=== PATIENT | female | born 1940 | race Caucasian/White ===

== ENCOUNTER 2020-01-22 13:31 | Emergency (ER) | payer MEDICARE ==
[~2020-01-22] VITALS: Ht 162.6 cm; Wt 68.2 kg
[2020-01-22 14:18] VITALS: BP 165/80
== END 2020-01-22 16:12 | disposition home or self-care (01) ==
LOC: ER 13:34
DX: S22.089A Unspecified fracture of T11-T12 vertebra, initial encounter for closed fracture (principal); I10 Essential (primary) hypertension; E78.00 Pure hypercholesterolemia, unspecified; I48.91 Unspecified atrial fibrillation; E11.9 Type 2 diabetes mellitus without complications; Z86.73 Personal history of transient ischemic attack (TIA), and cerebral infarction without residual deficits; W19.XXXA Unspecified fall, initial encounter; Y93.89 Activity, other specified; Y92.89 Other specified places as the place of occurrence of the external cause; Y99.8 Other external cause status
CPT/HCPCS: 72131; 93005; 99284

== ENCOUNTER 2020-02-10 20:10 | Emergency (ER) | payer MEDICARE, OTHER ==
[~2020-02-10] VITALS: Ht 160 cm; Wt 63.0 kg
[~2020-02-10 20:10] MED LIST: ATOR20TA66 PO; EMPA10TA PO; FENO145T26 PO; HYDR25TA4 PO; LISI40TA4 PO; MEMA10TA56 PO; METF-438 PO; METO-384 PO; MIRT15TA8 PO; TRAM50TA2 PO
[2020-02-10] MEDS ORDERED: diltiazem 5mg/ml 5ml inj. IV ONE (20:35)
[2020-02-10 21:03] LABS: BASOPHILS # (AUTO) 0.1 X10'3 (0-0.2); BASOPHILS % (AUTO) 0.5 % (0-1); EOSINOPHILS # (AUTO) 0.3 X10'3 (0-0.9); EOSINOPHILS % (AUTO) 2.6 % (0-6); HEMATOCRIT 40.4 % (35.0-45.0); HEMOGLOBIN 13.8 g/dl (12.0-16.0); LYMPHOCYTES # (AUTO) 2.4 X10'3 (1.1-4.8); LYMPHOCYTES % (AUTO) 23.4 % (21-51); MEAN CORPUSCULAR HEMOGLOBIN 30.3 PG (27.0-31.0); MEAN CORPUSCULAR HGB CONC 34.1 g/dL (33.0-36.5); MEAN CORPUSCULAR VOLUME 88.9 FL (78-98); MEAN PLATELET VOLUME 9.4 FL (7.4-10.4); MONOCYTES # (AUTO) 0.8 X10'3 (0-0.9); MONOCYTES % (AUTO) 7.3 % (2-12); NEUTROPHILS # (AUTO) 6.8 X10'3 (1.8-7.7); NEUTROPHILS % (AUTO) 66.2 % (42-75); PLATELET COUNT 263 X10'3 (140-440); RED BLOOD COUNT 4.55 X10'6 (4.20-5.60); RED CELL DISTRIBUTION WIDTH 13.2 % (11.5-14.5); WHITE BLOOD COUNT 10.3 X10'3 (4.5-11.0)
[2020-02-10 21:16] LABS: ALANINE AMINOTRANSFERASE 13 U/L (12-78); ALBUMIN 3.2 G/DL (3.4-5.0); ALBUMIN/GLOBULIN RATIO 0.8 (1.1-1.5); ALKALINE PHOSPHATASE 120 IU/L (46-116); ANION GAP 10 (8-16); ASPARTATE AMINO TRANSFERASE 15 U/L (10-37); BILIRUBIN,TOTAL 0.3 MG/DL (0.1-1.0); BLOOD UREA NITROGEN 37 MG/DL (7-18); BUN/CREATININE RATIO 27.4 (6.6-38.0); CALCIUM 9.1 MG/DL (8.5-10.1); CHLORIDE 100 MMOL/L (99-107); CREATININE 1.35 MG/DL (0.40-0.90); GLUCOSE 230 MG/DL (70-104); PHOSPHORUS 4.1 MG/DL (2.3-4.5); POTASSIUM 4.7 MMOL/L (3.5-5.1); SODIUM 135 MMOL/L (135-145); TOTAL PROTEIN 7.2 G/DL (6.4-8.2); eGFR 38 ML/MIN
[2020-02-10 22:16] VITALS: BP 140/59
== END 2020-02-10 22:19 | disposition home or self-care (01) ==
LOC: ER 20:10
DX: I48.91 Unspecified atrial fibrillation (principal); E78.00 Pure hypercholesterolemia, unspecified; I10 Essential (primary) hypertension; E11.9 Type 2 diabetes mellitus without complications; Z86.73 Personal history of transient ischemic attack (TIA), and cerebral infarction without residual deficits; Z79.899 Other long term (current) drug therapy
CPT/HCPCS: 36415; 80053; 83735; 84100; 85025; 93005; 96374; 99285; J3490

== ENCOUNTER 2020-05-23 07:03 | Emergency (ER) | payer MEDICARE, MEDICAID ==
[~2020-05-23] VITALS: Ht 165.1 cm; Wt 68.2 kg
[2020-05-23 07:44] LABS: BASOPHILS # (AUTO) 0.1 X10'3 (0-0.2); BASOPHILS % (AUTO) 0.6 % (0-1); EOSINOPHILS # (AUTO) 0.5 X10'3 (0-0.9); EOSINOPHILS % (AUTO) 4.8 % (0-6); HEMATOCRIT 41.5 % (35.0-45.0); HEMOGLOBIN 13.8 g/dl (12.0-16.0); MEAN CORPUSCULAR HEMOGLOBIN 30.1 PG (27.0-31.0); MEAN CORPUSCULAR HGB CONC 33.2 g/dL (33.0-36.5); MEAN CORPUSCULAR VOLUME 90.5 FL (78-98); MONOCYTES # (AUTO) 0.9 X10'3 (0-0.9); MONOCYTES % (AUTO) 8.3 % (2-12); NEUTROPHILS # (AUTO) 5.1 X10'3 (1.8-7.7); NEUTROPHILS % (AUTO) 48.3 % (42-75); PLATELET COUNT 251 X10'3 (140-440); RED BLOOD COUNT 4.58 X10'6 (4.20-5.60); RED CELL DISTRIBUTION WIDTH 13.8 % (11.5-14.5); WHITE BLOOD COUNT 10.5 X10'3 (4.5-11.0)
[2020-05-23 07:59] LABS: ALANINE AMINOTRANSFERASE 14 U/L (12-78); ALBUMIN 3.7 G/DL (3.4-5.0); ALBUMIN/GLOBULIN RATIO 0.9 (1.1-1.5); ALKALINE PHOSPHATASE 68 IU/L (46-116); ANION GAP 7 (8-16); ASPARTATE AMINO TRANSFERASE 10 U/L (10-37); BILIRUBIN,TOTAL 0.3 MG/DL (0.1-1.0); BLOOD UREA NITROGEN 35 MG/DL (7-18); BUN/CREATININE RATIO 29.4 (6.6-38.0); CALCIUM 9.1 MG/DL (8.5-10.1); CHLORIDE 102 MMOL/L (99-107); CREATININE 1.19 MG/DL (0.40-0.90); GLUCOSE 141 MG/DL (70-104); POTASSIUM 4.3 MMOL/L (3.5-5.1); SODIUM 138 MMOL/L (135-145); TOTAL CARBON DIOXIDE 28.8 MMOL/L (24-32); TOTAL PROTEIN 7.7 G/DL (6.4-8.2); eGFR 44 ML/MIN
[2020-05-23 08:00] LABS: CLARITY,URINE CLEAR (Clear); COLOR,URINE STRAW (Yellow); GLUCOSE, URINE >=1000 mg/dl (Neg); KETONES,URINE NEGATIVE (Neg); LEUKOCYTE ESTERASE ,URINE NEGATIVE (Neg); NITRITES, URINE NEGATIVE (Neg); OCCULT BLOOD,URINE NEGATIVE (Neg); PH,URINE 5.5 (4.8-8.0); PROTEIN,URINE NEGATIVE (Neg); UA COLLECTION TYPE STRAIGHT CATH; UROBILINOGEN,URINE 0.2 E.U/dL (0.2-1.0)
[2020-05-23 08:17] LABS: SQUAMOUS EPITHELIAL CELL,UR FEW /LPF (FEW)
[2020-05-23 08:18] LABS: BACTERIA,URINE FEW /HPF (Neg); WBC,URINE 0-4 /HPF (0-4)
[2020-05-23 08:19] LABS: RBC,URINE 0-2 /HPF (0-2); TRANSITIONAL EPI CELLS,URINE FEW /HPF
--- NOTE | 2020-05-23 09:21 | NUR ---
REPORT GIVEN TO RPA AND NOTIFIED OF PATIENT'S RETURN TO FACILITY.
[2020-05-23 09:22] VITALS: BP 158/54
== END 2020-05-23 09:38 | disposition home or self-care (01) ==
LOC: ER 07:04
DX: R42 Dizziness and giddiness (principal); I49.1 Atrial premature depolarization; R06.02 Shortness of breath; R53.83 Other fatigue; R07.89 Other chest pain; R10.9 Unspecified abdominal pain; R05 Cough; I48.91 Unspecified atrial fibrillation; E78.00 Pure hypercholesterolemia, unspecified; I10 Essential (primary) hypertension; E11.9 Type 2 diabetes mellitus without complications; Z86.73 Personal history of transient ischemic attack (TIA), and cerebral infarction without residual deficits; Z79.899 Other long term (current) drug therapy
CPT/HCPCS: 36415; 71045; 80053; 81001; 83880; 84484; 85025; 93005; 99285

== ENCOUNTER 2020-12-24 10:46 | Inpatient (IN) | payer MEDICARE, MEDICAID ==
[~2020-12-24] VITALS: Ht 152.4 cm; Wt 70.0 kg
[2020-12-24] VITALS (22 sets, daily range): BP systolic 99–161; BP diastolic 49–104
[~2020-12-24 10:46] MED LIST changes: +LISI40TA13 PO; -LISI40TA4 PO
[2020-12-24] MEDS ORDERED: iohexol 350MG/ML 100ml bottle IV ONE (11:03)
--- NOTE | 2020-12-24 11:04 | NUR ---
PATIENT TO CT SCAN
--- NOTE | 2020-12-24 11:07 | NUR ---
Called to ED bed 11 for stroke alert, pt in CT. discussed case with Dr. Josue. Pt is getting CTA head and chest, she has a cold pulseless right arm.
--- NOTE | 2020-12-24 11:20 | NUR ---
Return from CT 2nd iv started, SOC contacted, EKG obtained. pt in afib, chronic per hx. I called [facility], where pt lives, spoke to nurse Asha. She reports that at 10am while ambulating she had sudden onset right arm pain, had to sit down. No stroke sympoms at that time.
[2020-12-24 11:23] LABS: BASOPHILS # (AUTO) 0.1 X10'3 (0-0.2); BASOPHILS % (AUTO) 0.5 % (0-1); EOSINOPHILS # (AUTO) 0.4 X10'3 (0-0.9); HEMATOCRIT 43.5 % (35.0-45.0); HEMOGLOBIN 14.3 g/dl (12.0-16.0); LYMPHOCYTES # (AUTO) 4.9 X10'3 (1.1-4.8); MEAN CORPUSCULAR HEMOGLOBIN 29.4 PG (27.0-31.0); MEAN CORPUSCULAR HGB CONC 32.8 g/dL (33.0-36.5); MEAN CORPUSCULAR VOLUME 89.6 FL (78-98); MEAN PLATELET VOLUME 8.8 FL (7.4-10.4); MONOCYTES # (AUTO) 0.9 X10'3 (0-0.9); MONOCYTES % (AUTO) 6.9 % (2-12); NEUTROPHILS % (AUTO) 52.6 % (42-75); PLATELET COUNT 317 X10'3 (140-440); RED BLOOD COUNT 4.85 X10'6 (4.20-5.60); RED CELL DISTRIBUTION WIDTH 13.2 % (11.5-14.5); WHITE BLOOD COUNT 13.2 X10'3 (4.5-11.0)
[2020-12-24 11:27] LABS: PARTIAL THROMBOPLASTIN TIME 27 SECONDS (22-32)
--- NOTE | 2020-12-24 11:28 | NUR ---
Dr Calhoun from [facility] [place] examines pt via telemedicine. Pt has a right side facial droop with drooling and expressive aphasia, able to state she is in pain.
[2020-12-24 11:29] LABS: ALANINE AMINOTRANSFERASE 17 U/L (12-78); ALBUMIN 3.7 G/DL (3.4-5.0); ALBUMIN/GLOBULIN RATIO 0.8 (1.1-1.5); ALKALINE PHOSPHATASE 83 IU/L (46-116); ANION GAP 11 (8-16); ASPARTATE AMINO TRANSFERASE 12 U/L (10-37); BILIRUBIN,TOTAL 0.4 MG/DL (0.1-1.0); BLOOD UREA NITROGEN 32 MG/DL (7-18); BUN/CREATININE RATIO 28.6 (6.6-38.0); CALCIUM 9.6 MG/DL (8.5-10.1); CHLORIDE 102 MMOL/L (99-107); CREATININE 1.12 MG/DL (0.40-0.90); GLUCOSE 239 MG/DL (70-104); POTASSIUM 4.2 MMOL/L (3.5-5.1); SODIUM 139 MMOL/L (135-145); TOTAL CARBON DIOXIDE 26.3 MMOL/L (24-32); TOTAL PROTEIN 8.1 G/DL (6.4-8.2); eGFR 47 ML/MIN
[2020-12-24] MEDS ORDERED: diltiazem 5mg/ml 5ml inj. IV ONE ×2 (11:30→13:45)
--- NOTE | 2020-12-24 11:36 | NUR ---
Neuro tele in progress with stroke Rn
[2020-12-24] MEDS ORDERED: normal saline 1000ml 1,000 ML IV ONE (11:40)
--- NOTE | 2020-12-24 11:44 | NUR ---
Dr. Josue orders tPA, which is drawn up and ready 1145 6mg IV tpa bolus given over 1 min 1150 tpa drip initiated at 59.9 mg over 1 hr.
--- NOTE | 2020-12-24 11:45 | NUR ---
Bolus tpa given
--- NOTE | 2020-12-24 11:50 | NUR ---
TPA infusion started
[2020-12-24] MEDS ORDERED: ondansetron/PF 4mg/2ml inj IV ONE ×2 (12:10→13:35)
[2020-12-24] MEDS ORDERED: morphine 4 MG/ML inj SYRINge IV ONE (12:10)
[2020-12-24] MEDS ORDERED: diltiazem-D5W 125mg/125ml 125 ML IV SCH (12:45)
--- NOTE | 2020-12-24 12:50 | NUR ---
Tpa drip completed. NS bag attached to line to infuse remainder of medication in line.
[2020-12-24] MEDS ORDERED: diltiazem-NS 100mg/100ml 100 ML IV SCH ×2 (12:55→15:30)
--- NOTE | 2020-12-24 12:55 | NUR ---
dorothy Cooley, AMARISA [phone] called by stroke Rn for decision making
--- NOTE | 2020-12-24 13:17 | NUR ---
Dr. Kaur in to see pt, plan to OR, he discusses care with DR. Hernández via phone.
[2020-12-24] MEDS ORDERED: labetalol 20mg/4ml (5mg/ml) syringe IV PRN (13:30)
[2020-12-24] MEDS ORDERED: hydrALAZINE 20mg/ml inj. IV PRN (13:30)
[2020-12-24] MEDS ORDERED: ringers solution, lacted 1,000 ML IV SCH (13:30)
[2020-12-24] MEDS ORDERED: morphine 4 MG/ML inj SYRINge IV PRN (13:30)
[2020-12-24] MEDS ORDERED: morphine 2 MG/ML inj. syringe IV PRN ×2 (13:30→14:00)
[2020-12-24] MEDS ORDERED: ondansetron/PF 4mg/2ml inj IV PRN ×2 (13:30→14:00)
[2020-12-24] MEDS ORDERED: fentaNYL/PF 50MCG/1 ML 2ML syringe IV PRN ×2 (13:30)
--- NOTE | 2020-12-24 13:32 | NUR ---
patient cardizem gtt to 10 mg/hr
--- NOTE | 2020-12-24 13:44 | NUR ---
Dr Hernández placing central line
[2020-12-24] MEDS ORDERED: MIDAZolam 1 MG/ML 5ML VIAL ONE (13:59)
[2020-12-24] MEDS ORDERED: potassium Cl 20 mEq SR tablet PO PRN ×2 (14:00)
[2020-12-24] MEDS: K, MAG and/or Phos replacement - Verify level? MC SCH (14:00)
[2020-12-24] MEDS ORDERED: fentaNYL /PF 50mcg/ml 5ml ampule ONE (14:00)
[2020-12-24] MEDS ORDERED: etomidate 2mg/ml inj. ONE ×3 (14:01→15:25)
[2020-12-24] MEDS ORDERED: heparin 10,000 units/1 ML INJ ONE (14:20)
[2020-12-24 14:41] LABS: MAGNESIUM 1.5 MG/DL (1.5-2.4)
[2020-12-24] MEDS ORDERED: phenylephrine 10mg/ml inj. ONE (14:50)
[2020-12-24] MEDS ORDERED: niCARdipine 2.5mg/ml inj IV ONE (14:50)
[2020-12-24] MEDS ORDERED: sevoflurane 250ml liquid IH ONE (14:50)
--- NOTE | 2020-12-24 14:50 | NUR ---
Pt to OR via luis angel, on monitor and cardizem drip infusing, no change in neuro status. Nephew Yasir at bedside, he states speech is very abnormal for pt, she speaks good [place] normally.
[2020-12-24] MEDS ORDERED: ceFAZolin 1000mg inj ONE ×2 (15:25)
[2020-12-24] MEDS ORDERED: ondansetron/PF 4mg/2ml inj ONE (15:31)
[2020-12-24] MEDS ORDERED: dexamethasone sod phosphate 4mg/ml inj. ONE (15:31)
[2020-12-24] MEDS ORDERED: ePHEDrine 50MG/ML INJ. ONE (15:39)
[2020-12-24] MEDS: diltiazem-NS 100mg/100ml 100 ML IV SCH (15:49)
[2020-12-24] MEDS ORDERED: heparin 10,000 units/1 ML INJ IV PRN (15:55)
--- NOTE | 2020-12-24 17:00 | NUR ---
Received pt from OR. Pt in a-fib with rate of 90 bpm, on SpO2 99% on 10 L/min O2 via face mask, some snoring noted, respirations unlabored, +1 radial pulses present bilaterally, pt making moaning vocalizations. Report received by Dr. Fish.
--- NOTE | 2020-12-24 18:25 | NUR ---
Patient in room ICU 2041. I have received report from BORIS Heller and had the opportunity to ask questions and assume patient care.
--- NOTE | 2020-12-24 18:25 | NUR ---
Problems reprioritized. Patient report given, questions answered & plan of care reviewed with BORIS Haider.
--- NOTE | 2020-12-24 18:30 | NUR ---
Patient turned and full skin assessment with direct observation completed by myself and Marie Reynoso RN.
[2020-12-24] MEDS: sodium chloride 0.45% 1,000 ML IV SCH (18:57)
[2020-12-24] MEDS: heparin 25,000 UNIT/250ml bag 250 ML IV SCH (19:15)
[2020-12-24] MEDS ORDERED: HYDR-3965 PO (19:18)
[2020-12-24] MEDS ORDERED: DILT60CA2 PO (19:18)
[2020-12-24] MEDS ORDERED: GENT5DRO4 EACHEYE (19:18)
[2020-12-24] MEDS ORDERED: HYDR12.55 PO (19:18)
[2020-12-24] MEDS ORDERED: DOCU-149 PO (19:18)
[2020-12-24] MEDS ORDERED: PANT20TA18 PO (19:18)
[2020-12-24] MEDS ORDERED: HYDR-3973 PO (19:18)
[2020-12-24] MEDS ORDERED: MESSAGE TO PHARMACY PO ONE (19:40)
[2020-12-24] MEDS ORDERED: insulin regular, human U-100 3ml vial - multi-dose SQ SCH (19:40)
[2020-12-24] MEDS ORDERED: glucagon, human recombinant 1mg kit SUBCUT PRN (19:40)
[2020-12-24] MEDS ORDERED: dextrose 50%-water 50ml dispensing syringe IV PRN ×2 (19:40)
[2020-12-24] MEDS ORDERED: dextrose ORAL solution 15 GM/59 ML bottle PO PRN ×2 (19:40)
[2020-12-24] MEDS ORDERED: heparin, porcine 5000 units/ml vial SQ SCH (20:00)
[2020-12-24] MEDS: pantoprazole 40 MG vial IV SCH (20:23)
[2020-12-24] MEDS: insulin glargine (Lantus) pen - multi-dose SQ SCH (20:33)
[2020-12-24] MEDS: insulin Lispro (HumaLOG) vial - multi-dose SQ SCH (20:34)
[2020-12-24] MEDS: ceFAZolin/D5W- 1GM premix 50 ML IV SCH (20:50)
[2020-12-25] VITALS (27 sets, daily range): BP systolic 99–132; BP diastolic 44–85
[2020-12-25] MEDS: ceFAZolin/D5W- 1GM premix 50 ML IV SCH
[2020-12-25] MEDS: insulin Lispro (HumaLOG) vial - multi-dose SQ SCH ×3 (01:56→14:03)
[2020-12-25 02:11] LABS: BASOPHILS % (AUTO) 0 % (0-1); EOSINOPHILS % (AUTO) 0 % (0-6); HEMATOCRIT 35.3 % (35.0-45.0); HEMOGLOBIN 11.6 g/dl (12.0-16.0); LYMPHOCYTES # (AUTO) 0.6 X10'3 (1.1-4.8); LYMPHOCYTES % (AUTO) 5.4 % (21-51); MEAN CORPUSCULAR HEMOGLOBIN 29.7 PG (27.0-31.0); MEAN CORPUSCULAR HGB CONC 32.9 g/dL (33.0-36.5); MEAN CORPUSCULAR VOLUME 90.1 FL (78-98); MEAN PLATELET VOLUME 8.8 FL (7.4-10.4); MONOCYTES # (AUTO) 0.3 X10'3 (0-0.9); MONOCYTES % (AUTO) 2.5 % (2-12); NEUTROPHILS % (AUTO) 92.1 % (42-75); PLATELET COUNT 259 X10'3 (140-440); RED BLOOD COUNT 3.92 X10'6 (4.20-5.60); RED CELL DISTRIBUTION WIDTH 13.4 % (11.5-14.5)
[2020-12-25] MEDS ORDERED: ceFAZolin/D5W- 1GM premix 50 ML IV ONE (02:20)
[2020-12-25] MEDS: sodium chloride 0.45% 1,000 ML IV SCH ×2 (02:22→09:32)
[2020-12-25 02:25] LABS: ALANINE AMINOTRANSFERASE 7 U/L (12-78); ALBUMIN 2.6 G/DL (3.4-5.0); ALBUMIN/GLOBULIN RATIO 0.7 (1.1-1.5); ALKALINE PHOSPHATASE 64 IU/L (46-116); ANION GAP 10 (8-16); ASPARTATE AMINO TRANSFERASE 15 U/L (10-37); BILIRUBIN,TOTAL 0.3 MG/DL (0.1-1.0); BLOOD UREA NITROGEN 27 MG/DL (7-18); BUN/CREATININE RATIO 23.5 (6.6-38.0); CALCIUM 8.1 MG/DL (8.5-10.1); CHLORIDE 106 MMOL/L (99-107); CREATININE 1.15 MG/DL (0.40-0.90); GLUCOSE 284 MG/DL (70-104); POTASSIUM 4.7 MMOL/L (3.5-5.1); SODIUM 141 MMOL/L (135-145); TOTAL CARBON DIOXIDE 24.9 MMOL/L (24-32); TOTAL PROTEIN 6.1 G/DL (6.4-8.2); eGFR 45 ML/MIN
--- NOTE | 2020-12-25 05:25 | NUR ---
Bedside swallow not down overnight due to patient being drowsy. Mention this during Drs,. rosalino, ordered modified barium swallow and PT/OT.
--- NOTE | 2020-12-25 06:10 | NUR ---
Problems reprioritized. Patient report given, questions answered & plan of care reviewed with BORIS Lozoya.
[2020-12-25] MEDS: K, MAG and/or Phos replacement - Verify level? MC SCH (06:44)
[2020-12-25] MEDS: pantoprazole 40 MG vial IV SCH (07:08)
--- NOTE | 2020-12-25 10:57 | NUR ---
Unable to get hold of speech therapist, called [facility], he said that Malaika is oncall and she will be here between [phone]. Called radiology and undated them.
--- NOTE | 2020-12-25 11:32 | NUR ---
DM Consult: Pt hx DM A1C 7.9 appropriate given geriatric age. Addendum: 12/25/20 at [address] Amended: Links added.
[2020-12-25] MEDS: diltiazem-NS 100mg/100ml 100 ML IV SCH ×2 (11:49→19:00)
[2020-12-25] MEDS ORDERED: diltiazem 5mg/ml 5ml inj. IV ONE (13:00)
--- NOTE | 2020-12-25 15:03 | NUR ---
last two PTTs therapeutic, no change to Heparin drip per protocol.
--- NOTE | 2020-12-25 15:07 | NUR ---
Pt in Afib/Flutter. Restarted gillian at 3ml, Dr. Adams aware. Addendum: 12/25/20 at 1511 by Darell Roman RN Pt did not pass BSS (beside swallow study). Per speech therapist Pt is NPO till next BSS tomorrow
--- NOTE | 2020-12-25 17:08 | NUR ---
Follow up stroke exam NIHSS 5, pt is sleeping, awakes easily, states "I dont feel good" unable to state month or age, some left gaze paresis noted. slight right facial droop and right arm drift. MRI not completed, nurse will follow up with telemed. neuro consult when this is completed this evening.
[2020-12-25] MEDS ORDERED: acetaminophen 1,000mg/100ml IV 100 ML IV PRN (17:45)
[2020-12-25 20:28] LABS: PARTIAL THROMBOPLASTIN TIME 59 SECONDS (22-32)
[2020-12-25] MEDS: insulin glargine (Lantus) pen - multi-dose SQ SCH (21:53)
[2020-12-26] VITALS (21 sets, daily range): BP systolic 97–158; BP diastolic 48–98
[2020-12-26] MEDS: heparin 25,000 UNIT/250ml bag 250 ML IV SCH (01:15)
[2020-12-26 03:38] LABS: BASOPHILS % (AUTO) 0.1 % (0-1); EOSINOPHILS % (AUTO) 0 % (0-6); HEMATOCRIT 33.7 % (35.0-45.0); HEMOGLOBIN 10.9 g/dl (12.0-16.0); LYMPHOCYTES # (AUTO) 2.4 X10'3 (1.1-4.8); MEAN CORPUSCULAR HEMOGLOBIN 29.5 PG (27.0-31.0); MEAN CORPUSCULAR HGB CONC 32.4 g/dL (33.0-36.5); MEAN CORPUSCULAR VOLUME 90.9 FL (78-98); MONOCYTES # (AUTO) 1.5 X10'3 (0-0.9); MONOCYTES % (AUTO) 6.8 % (2-12); NEUTROPHILS % (AUTO) 82.1 % (42-75); PLATELET COUNT 240 X10'3 (140-440); RED BLOOD COUNT 3.71 X10'6 (4.20-5.60); RED CELL DISTRIBUTION WIDTH 13.6 % (11.5-14.5); WHITE BLOOD COUNT 21.9 X10'3 (4.5-11.0)
[2020-12-26 03:42] LABS: PARTIAL THROMBOPLASTIN TIME 52 SECONDS (22-32)
[2020-12-26 03:52] LABS: ALANINE AMINOTRANSFERASE 14 U/L (12-78); ALBUMIN 2.6 G/DL (3.4-5.0); ALBUMIN/GLOBULIN RATIO 0.8 (1.1-1.5); ALKALINE PHOSPHATASE 60 IU/L (46-116); ANION GAP 9 (8-16); ASPARTATE AMINO TRANSFERASE 20 U/L (10-37); BLOOD UREA NITROGEN 25 MG/DL (7-18); BUN/CREATININE RATIO 27.2 (6.6-38.0); CALCIUM 8.1 MG/DL (8.5-10.1); CHLORIDE 107 MMOL/L (99-107); CREATININE 0.92 MG/DL (0.40-0.90); GLUCOSE 134 MG/DL (70-104); POTASSIUM 3.8 MMOL/L (3.5-5.1); SODIUM 143 MMOL/L (135-145); TOTAL PROTEIN 5.9 G/DL (6.4-8.2); eGFR 58 ML/MIN
[2020-12-26 04:08] LABS: BILIRUBIN,TOTAL 0.3 MG/DL (0.1-1.0)
[2020-12-26 07:55] LABS: MAGNESIUM 1.7 MG/DL (1.5-2.4)
[2020-12-26] MEDS: pantoprazole 40 MG vial IV SCH (07:58)
[2020-12-26] MEDS: K, MAG and/or Phos replacement - Verify level? MC SCH (08:49)
--- NOTE | 2020-12-26 08:51 | NUR ---
PTT 48, no change in Heparin drip
[2020-12-26] MEDS ORDERED: acetaminophen 650mg rectal suppository RC PRN (12:35)
[2020-12-26] MEDS ORDERED: magnesium Cl slow-release 64mg tablet PO PRN (12:45)
[2020-12-26] MEDS ORDERED: magnesium 2GM in 50ml NS 50 ML IV PRN (12:45)
[2020-12-26] MEDS ORDERED: magnesium 2GM in 50ml NS 50 ML IV ONE (12:45)
[2020-12-26] MEDS ORDERED: magnesium 4gm in 100ml NS 100 ML IV PRN (12:45)
[2020-12-26] MEDS: sodium chloride 0.45% 1,000 ML IV SCH ×2 (13:10→19:20)
--- NOTE | 2020-12-26 14:09 | NUR ---
Initial: Pt admit for possible CVA and R arm thrombosis s/p R arm thrombectomy this admit. Pending MRI today to determine if true CVA per RN. Pt remains NPO this admit day 2 w/ ALOC AOx1 and hx dementia unable to pass PLUMBING ASSEMBLER INSTALLER BSS currently. LBM 12/24. EN recs below in case alternative nutrition needs; using IBW since pending scaled wt this admit. Will continue to monitor for PO diet advancement/acceptance and additional protein/kcal needs. Rec: 1. advance diet as medically indicated to carb controlled per PLUMBING ASSEMBLER INSTALLER/MD 2. IF remains NPO per PLUMBING ASSEMBLER INSTALLER recs consider alternative EN to meet needs 3. IF TF; Glucerna 1.2 at 40ml/hr goal w/ 200ml Q4 water flushes 4. scaled wt this admit Addendum: 12/26/20 at [address] Amended: Links added.
[2020-12-26] MEDS: diltiazem-NS 100mg/100ml 100 ML IV SCH ×2 (17:25→18:38)
--- NOTE | 2020-12-26 18:33 | NUR ---
Problems reprioritized. Patient report given, questions answered & plan of care reviewed with Night RN.
[2020-12-26] MEDS: insulin glargine (Lantus) pen - multi-dose SQ SCH (21:29)
[2020-12-27] VITALS (23 sets, daily range): BP systolic 124–158; BP diastolic 50–82
[2020-12-27 03:42] LABS: BASOPHILS % (AUTO) 0.3 % (0-1); EOSINOPHILS # (AUTO) 0.1 X10'3 (0-0.9); HEMATOCRIT 31.9 % (35.0-45.0); HEMOGLOBIN 10.6 g/dl (12.0-16.0); LYMPHOCYTES % (AUTO) 26.5 % (21-51); MEAN CORPUSCULAR HEMOGLOBIN 29.6 PG (27.0-31.0); MEAN CORPUSCULAR HGB CONC 33.2 g/dL (33.0-36.5); MEAN CORPUSCULAR VOLUME 88.9 FL (78-98); MEAN PLATELET VOLUME 8.4 FL (7.4-10.4); MONOCYTES # (AUTO) 1.1 X10'3 (0-0.9); MONOCYTES % (AUTO) 9.5 % (2-12); NEUTROPHILS # (AUTO) 7.1 X10'3 (1.8-7.7); NEUTROPHILS % (AUTO) 62.7 % (42-75); PLATELET COUNT 208 X10'3 (140-440); RED BLOOD COUNT 3.58 X10'6 (4.20-5.60); RED CELL DISTRIBUTION WIDTH 13.3 % (11.5-14.5); WHITE BLOOD COUNT 11.3 X10'3 (4.5-11.0)
[2020-12-27 03:49] LABS: ALANINE AMINOTRANSFERASE 16 U/L (12-78); ALBUMIN 2.4 G/DL (3.4-5.0); ALBUMIN/GLOBULIN RATIO 0.7 (1.1-1.5); ALKALINE PHOSPHATASE 62 IU/L (46-116); ANION GAP 5 (8-16); ASPARTATE AMINO TRANSFERASE 17 U/L (10-37); BILIRUBIN,TOTAL 0.3 MG/DL (0.1-1.0); BLOOD UREA NITROGEN 17 MG/DL (7-18); BUN/CREATININE RATIO 21.8 (6.6-38.0); CALCIUM 8.2 MG/DL (8.5-10.1); CHLORIDE 108 MMOL/L (99-107); CREATININE 0.78 MG/DL (0.40-0.90); GLUCOSE 75 MG/DL (70-104); MAGNESIUM 1.8 MG/DL (1.5-2.4); POTASSIUM 3.3 MMOL/L (3.5-5.1); SODIUM 142 MMOL/L (135-145); TOTAL PROTEIN 5.8 G/DL (6.4-8.2); eGFR 71 ML/MIN
[2020-12-27] MEDS ORDERED: potassium Cl 40MEQ/250ML bag 270 ML IV PRN (05:10)
--- NOTE | 2020-12-27 07:59 | NUR ---
Patient in room ICU 2041. I have received report from Nafisa Galaviz and had the opportunity to ask questions and assume patient care. Patient laying in bed with eyes closed, 1L nc sating high 90's, aranda to gravity, ordered drips infusing to L IJ
[2020-12-27] MEDS: K, MAG and/or Phos replacement - Verify level? MC SCH (08:00)
[2020-12-27] MEDS: K and/or MAG REPLACEMENT MC SCH (08:00)
[2020-12-27] MEDS: pantoprazole 40 MG vial IV SCH (08:12)
[2020-12-27] MEDS: sodium chloride 0.45% 1,000 ML IV SCH (08:40)
[2020-12-27] MEDS: diltiazem-NS 100mg/100ml 100 ML IV SCH ×2 (10:53→13:25)
[2020-12-27] MEDS: heparin 25,000 UNIT/250ml bag 250 ML IV SCH (10:55)
--- NOTE | 2020-12-27 11:09 | NUR ---
Rounds note, Dr. Monreal updated on patients, labs, drips and lines. Informed Dr. Monreal that patient failed 2 swallow evals with speech therapy New orders D/C Ij and place PIV [facility] and get nutrition consult change fluids to D5NS with 20meq of potassium to run at 75mls/hr
[2020-12-27] MEDS: potassium Cl 20mEq in D5-NS 1,000 ML IV SCH (11:15)
[2020-12-27] MEDS ORDERED: lisinopril 20mg tablet PO SCH (11:57)
[2020-12-27] MEDS ORDERED: memantine 5mg tablet PO SCH (11:58)
--- NOTE | 2020-12-27 12:46 | NUR ---
TF Consult: Pt failed RAMP SUPERVISOR BSS past 2 days remains NPO day 3 pending [facility] placement for nutrition at this time per salesperson furniture. TF recs below using IBW since pending scaled wt this admit; will monitor for tolerance and adjustment needs as medically indicated. Rec: 1. NGTF via [facility] using Glucerna 1.2 at 40ml/hr goal; to provide 960ml volume, 1125kcals, 778ml free water, and 58g protein. 2. additional water flushes 100ml Q4 3. PALB Q /; daily wts 4. monitor for TF tolerance 5. scaled wt this admit 6. advance diet as medically indicated to carb controlled per RAMP SUPERVISOR/MD recs Addendum: 12/27/20 at [address] Amended: Links added.
[2020-12-27] MEDS ORDERED: POTASSIUM BICARB 20meq eff tab 20 MEQ TABLET.EFF NG PRN ×2 (13:47→13:48)
[2020-12-27] MEDS ORDERED: dextrose ORAL solution 15 GM/59 ML bottle NG PRN ×2 (13:48→13:50)
[2020-12-27] MEDS ORDERED: lisinopril 20mg tablet NG SCH (13:49)
[2020-12-27] MEDS: docusate sodium 100mg/10ml UD cup NG SCH (20:00)
[2020-12-27] MEDS: memantine 5mg tablet NG SCH (20:00)
[2020-12-27] MEDS: gentamicin ophthalmic ointment 1 APPLIC TUBE EACHEYE SCH (20:00)
[2020-12-27] MEDS ORDERED: diltiazem SR 60mg capsule (twice daily) PO SCH (20:00)
[2020-12-27] MEDS: insulin glargine (Lantus) pen - multi-dose SQ SCH (20:30)
[2020-12-27] MEDS: metoprolol succinate 25mg (24-HOUR) SR. Tablet PO SCH (20:44)
[2020-12-27] MEDS ORDERED: mirtazapine 15mg tablet NG SCH (21:00)
[2020-12-27] MEDS ORDERED: atorvastatin 20mg tablet NG SCH (21:00)
[2020-12-28] VITALS (17 sets, daily range): BP systolic 126–192; BP diastolic 55–114
[2020-12-28] MEDS: potassium Cl 20mEq in D5-NS 1,000 ML IV SCH ×2 (02:51→15:26)
[2020-12-28 03:14] LABS: BASOPHILS % (AUTO) 0.3 % (0-1); EOSINOPHILS # (AUTO) 0.3 X10'3 (0-0.9); EOSINOPHILS % (AUTO) 3.1 % (0-6); HEMATOCRIT 31.3 % (35.0-45.0); HEMOGLOBIN 10.4 g/dl (12.0-16.0); LYMPHOCYTES # (AUTO) 2.6 X10'3 (1.1-4.8); LYMPHOCYTES % (AUTO) 26.8 % (21-51); MEAN CORPUSCULAR HEMOGLOBIN 30.1 PG (27.0-31.0); MEAN CORPUSCULAR HGB CONC 33.2 g/dL (33.0-36.5); MEAN CORPUSCULAR VOLUME 90.8 FL (78-98); MEAN PLATELET VOLUME 8.5 FL (7.4-10.4); MONOCYTES # (AUTO) 0.9 X10'3 (0-0.9); MONOCYTES % (AUTO) 9.2 % (2-12); NEUTROPHILS # (AUTO) 5.8 X10'3 (1.8-7.7); NEUTROPHILS % (AUTO) 60.6 % (42-75); PLATELET COUNT 201 X10'3 (140-440); RED BLOOD COUNT 3.44 X10'6 (4.20-5.60); RED CELL DISTRIBUTION WIDTH 13.2 % (11.5-14.5); WHITE BLOOD COUNT 9.5 X10'3 (4.5-11.0)
[2020-12-28 03:52] LABS: ALANINE AMINOTRANSFERASE 17 U/L (12-78); ALBUMIN 2.4 G/DL (3.4-5.0); ALBUMIN/GLOBULIN RATIO 0.7 (1.1-1.5); ALKALINE PHOSPHATASE 60 IU/L (46-116); ANION GAP 6 (8-16); ASPARTATE AMINO TRANSFERASE 18 U/L (10-37); BILIRUBIN,TOTAL 0.4 MG/DL (0.1-1.0); BLOOD UREA NITROGEN 14 MG/DL (7-18); BUN/CREATININE RATIO 17.7 (6.6-38.0); CALCIUM 8.2 MG/DL (8.5-10.1); CHLORIDE 110 MMOL/L (99-107); CREATININE 0.79 MG/DL (0.40-0.90); GLUCOSE 138 MG/DL (70-104); MAGNESIUM 1.7 MG/DL (1.5-2.4); POTASSIUM 3.9 MMOL/L (3.5-5.1); SODIUM 142 MMOL/L (135-145); TOTAL CARBON DIOXIDE 25.8 MMOL/L (24-32); TOTAL PROTEIN 5.8 G/DL (6.4-8.2); eGFR 70 ML/MIN
[2020-12-28] MEDS: pantoprazole 40 MG vial IV SCH (07:29)
[2020-12-28] MEDS: diltiazem-NS 100mg/100ml 100 ML IV SCH (07:29)
[2020-12-28] MEDS ORDERED: pantoprazole 40mg Tablet.DR PO SCH (07:30)
[2020-12-28] MEDS: gentamicin ophthalmic ointment 1 APPLIC TUBE EACHEYE SCH ×2 (07:34→19:56)
[2020-12-28] MEDS: docusate sodium 100mg/10ml UD cup NG SCH (08:00)
[2020-12-28] MEDS: K, MAG and/or Phos replacement - Verify level? MC SCH (08:00)
[2020-12-28] MEDS: K and/or MAG REPLACEMENT MC SCH (08:00)
[2020-12-28] MEDS: memantine 5mg tablet NG SCH (08:00)
[2020-12-28] MEDS ORDERED: HYDROchlorothiazide 12.5mg capsule NG SCH (08:00)
[2020-12-28] MEDS ORDERED: polyethylene glycol 3350 17gm powd pack PO SCH (11:58)
[2020-12-28] MEDS ORDERED: bisacodyl 10mg suppository rectal RC PRN (12:00)
[2020-12-28] MEDS ORDERED: acetaminophen 325mg tablet PO PRN (12:05)
--- NOTE | 2020-12-28 12:53 | NUR ---
F/u 12/28: Pt TF never started; advanced to pureed/nectar thick/carb controlled diet per NITRILES LAB TECHNICIAN recs this AM pending PO documentation first meal. LBM 12/24 to receive duloclax suppository followed by miralax Q2 x3 per incoming freight clerk; pt dose have routine colace ordered however unable to provide given prior NPO status. Will monitor for PO hx and additional protein/kcal needs this admit. Rec: 1. continue carb controlled/pureed/nectar thick liquids per NITRILES LAB TECHNICIAN/MD recs 2. monitor for ONS needs 3. routine bowel care 4. scaled wt this admit Addendum: 12/28/20 at [address] Amended: Links added.
[2020-12-28] MEDS: polyethylene glycol 3350 17gm powd pack PO SCH ×4 (13:02→19:56)
[2020-12-28] MEDS: lisinopril 20mg tablet PO SCH (13:09)
[2020-12-28] MEDS: diltiazem SR 60mg capsule (twice daily) PO SCH ×2 (13:19→19:50)
[2020-12-28] MEDS: heparin 25,000 UNIT/250ml bag 250 ML IV SCH (13:40)
[2020-12-28] MEDS ORDERED: dextrose ORAL solution 15 GM/59 ML bottle PO PRN ×2 (13:41→13:42)
[2020-12-28] MEDS ORDERED: POTASSIUM BICARB 20meq eff tab 20 MEQ TABLET.EFF PO PRN ×2 (13:43→13:47)
--- NOTE | 2020-12-28 16:04 | NUR ---
Report given to Mikaela on neuro. RN states room not ready yet ans will call when room ready.
--- NOTE | 2020-12-28 16:45 | NUR ---
PT taken with all belongings to ortho neuro 4022.
--- NOTE | 2020-12-28 17:11 | NUR ---
Patient transferred from ICU to neuro 4022. received report from Chinyere ESCALANTE.
[2020-12-28] MEDS: mirtazapine 15mg tablet PO SCH (19:49)
[2020-12-28] MEDS: docusate sod 100mg capsule PO SCH (19:49)
[2020-12-28] MEDS: atorvastatin 20mg tablet PO SCH (19:50)
[2020-12-28] MEDS: memantine 5mg tablet PO SCH (19:50)
[2020-12-28] MEDS: insulin glargine (Lantus) pen - multi-dose SQ SCH (21:00)
--- NOTE | 2020-12-28 21:15 | NUR ---
Tele called pts HR in 130s, at this time pt has had an incontinent loose bowel movement and some urine. Bladder scanned pt and she has 900ml in bladder. 2129 Pt on bedpan. Addendum: 12/28/20 at 2150 by Sarah Avila RN Amended: Links added.
[2020-12-28] MEDS: metoprolol succinate 25mg (24-HOUR) SR. Tablet PO SCH (21:26)
[2020-12-29 03:11] LABS: BASOPHILS % (AUTO) 0.4 % (0-1); EOSINOPHILS # (AUTO) 0.4 X10'3 (0-0.9); EOSINOPHILS % (AUTO) 3.9 % (0-6); HEMATOCRIT 35.9 % (35.0-45.0); LYMPHOCYTES # (AUTO) 2.2 X10'3 (1.1-4.8); LYMPHOCYTES % (AUTO) 21.4 % (21-51); MEAN CORPUSCULAR HEMOGLOBIN 29.8 PG (27.0-31.0); MEAN CORPUSCULAR HGB CONC 33.4 g/dL (33.0-36.5); MEAN PLATELET VOLUME 8.6 FL (7.4-10.4); MONOCYTES # (AUTO) 0.9 X10'3 (0-0.9); MONOCYTES % (AUTO) 8.8 % (2-12); NEUTROPHILS # (AUTO) 6.9 X10'3 (1.8-7.7); NEUTROPHILS % (AUTO) 65.5 % (42-75); PLATELET COUNT 244 X10'3 (140-440); RED BLOOD COUNT 4.04 X10'6 (4.20-5.60); RED CELL DISTRIBUTION WIDTH 13.3 % (11.5-14.5); WHITE BLOOD COUNT 10.5 X10'3 (4.5-11.0)
[2020-12-29 03:29] LABS: ALANINE AMINOTRANSFERASE 16 U/L (12-78); ALBUMIN 2.6 G/DL (3.4-5.0); ALBUMIN/GLOBULIN RATIO 0.7 (1.1-1.5); ALKALINE PHOSPHATASE 71 IU/L (46-116); ANION GAP 8 (8-16); ASPARTATE AMINO TRANSFERASE 17 U/L (10-37); BILIRUBIN,TOTAL 0.5 MG/DL (0.1-1.0); BLOOD UREA NITROGEN 9 MG/DL (7-18); CALCIUM 8.9 MG/DL (8.5-10.1); CHLORIDE 106 MMOL/L (99-107); CREATININE 0.82 MG/DL (0.40-0.90); GLUCOSE 174 MG/DL (70-104); MAGNESIUM 1.7 MG/DL (1.5-2.4); POTASSIUM 3.8 MMOL/L (3.5-5.1); SODIUM 140 MMOL/L (135-145); TOTAL CARBON DIOXIDE 26.3 MMOL/L (24-32); TOTAL PROTEIN 6.4 G/DL (6.4-8.2); eGFR 67 ML/MIN
[2020-12-29] MEDS: potassium Cl 20mEq in D5-NS 1,000 ML IV SCH (03:48)
[2020-12-29 06:00] VITALS: BP 158/48
--- NOTE | 2020-12-29 06:36 | NUR ---
Patient in room ORTHO 4022. I have received report from jarocho avalos and had the opportunity to ask questions and assume patient care.
[2020-12-29] MEDS ORDERED: lansoprazole 15mg solutab NG SCH (08:00)
[2020-12-29] MEDS: K and/or MAG REPLACEMENT MC SCH (08:00)
[2020-12-29] MEDS: docusate sod 100mg capsule PO SCH ×2 (08:01→21:02)
[2020-12-29] MEDS: memantine 5mg tablet PO SCH ×2 (08:01→20:59)
[2020-12-29] MEDS: diltiazem SR 60mg capsule (twice daily) PO SCH ×2 (08:02→21:00)
[2020-12-29] MEDS: HYDROchlorothiazide 12.5mg capsule PO SCH (08:02)
[2020-12-29] MEDS: gentamicin ophthalmic ointment 1 APPLIC TUBE EACHEYE SCH ×2 (08:02→21:16)
[2020-12-29] MEDS: lisinopril 20mg tablet PO SCH (08:02)
[2020-12-29] MEDS: pantoprazole 40mg Tablet.DR PO SCH (08:02)
[2020-12-29 10:47] LABS: CHOL/HDL RATIO 1.8 (0.00-4.99); CHOLESTEROL 159 MG/DL (0-200); HDL CHOLESTEROL 87 MG/DL (35-60); LDL CHOLESTEROL 63 MG/DL (50-100); TRIGLYCERIDES 106 MG/DL (20-135)
[2020-12-29 11:00] VITALS: BP 178/57
[2020-12-29 13:30] VITALS: BP 140/69
--- NOTE | 2020-12-29 13:30 | NUR ---
Pt reported increased fatigued and nurse concerned with pt's weakness and increased drowsiness. Marked weakness R>L noted upon assessment. Stroke in to eval and Dr. Covington notified for further eval. VSS BP 140/69 at this time.
[2020-12-29] MEDS: insulin Lispro (HumaLOG) vial - multi-dose SQ SCH (13:53)
[2020-12-29] MEDS ORDERED: neomy sulf/bacitrac zn/polymixin b oint 14.2 gm tube TP PRN (14:20)
[2020-12-29] MEDS: normal saline 1000ml 1,000 ML IV SCH (14:55)
[2020-12-29] MEDS: heparin 25,000 UNIT/250ml bag 250 ML IV SCH ×2 (14:58→21:34)
[2020-12-29 17:00] VITALS: BP 160/53
--- NOTE | 2020-12-29 18:10 | NUR ---
Patient in room ORTHO 4022. I have received report from BORIS Briseno and had the opportunity to ask questions and assume patient care.
--- NOTE | 2020-12-29 18:18 | NUR ---
Problems reprioritized. Patient report given, questions answered & plan of care reviewed with sarah avalos.
[2020-12-29] MEDS ORDERED: iohexol 350MG/ML 100ml bottle IV ONE (19:09)
[2020-12-29] MEDS ORDERED: iohexol 300mg/ml 100ml inj. ONE (19:09)
--- NOTE | 2020-12-29 19:10 | NUR ---
Patient in room ORTHO 4022. I have received report from BORIS Briseno and had the opportunity to ask questions and assume patient care.
[2020-12-29] MEDS: mirtazapine 15mg tablet PO SCH (21:01)
[2020-12-29] MEDS: metoprolol succinate 25mg (24-HOUR) SR. Tablet PO SCH (21:01)
[2020-12-29] MEDS: atorvastatin 20mg tablet PO SCH (21:01)
[2020-12-29 21:04] VITALS: BP 144/75
[2020-12-29] MEDS: insulin glargine (Lantus) pen - multi-dose SQ SCH (21:16)
[2020-12-29 22:00] VITALS: BP 144/87
[2020-12-30 04:07] LABS: BASOPHILS # (AUTO) 0.1 X10'3 (0-0.2); BASOPHILS % (AUTO) 0.5 % (0-1); EOSINOPHILS # (AUTO) 0.5 X10'3 (0-0.9); HEMATOCRIT 35.6 % (35.0-45.0); HEMOGLOBIN 11.8 g/dl (12.0-16.0); LYMPHOCYTES % (AUTO) 28.1 % (21-51); MEAN CORPUSCULAR HEMOGLOBIN 29.9 PG (27.0-31.0); MEAN CORPUSCULAR VOLUME 90.5 FL (78-98); MEAN PLATELET VOLUME 8.5 FL (7.4-10.4); MONOCYTES % (AUTO) 9.3 % (2-12); NEUTROPHILS # (AUTO) 6.2 X10'3 (1.8-7.7); NEUTROPHILS % (AUTO) 57.1 % (42-75); PLATELET COUNT 257 X10'3 (140-440); RED BLOOD COUNT 3.94 X10'6 (4.20-5.60); RED CELL DISTRIBUTION WIDTH 13.3 % (11.5-14.5); WHITE BLOOD COUNT 10.8 X10'3 (4.5-11.0)
[2020-12-30 04:18] LABS: ALANINE AMINOTRANSFERASE 16 U/L (12-78); ALBUMIN 2.5 G/DL (3.4-5.0); ALBUMIN/GLOBULIN RATIO 0.7 (1.1-1.5); ALKALINE PHOSPHATASE 67 IU/L (46-116); ANION GAP 7 (8-16); ASPARTATE AMINO TRANSFERASE 15 U/L (10-37); BILIRUBIN,TOTAL 0.5 MG/DL (0.1-1.0); BLOOD UREA NITROGEN 9 MG/DL (7-18); CALCIUM 8.8 MG/DL (8.5-10.1); CHLORIDE 105 MMOL/L (99-107); GLUCOSE 130 MG/DL (70-104); MAGNESIUM 1.5 MG/DL (1.5-2.4); POTASSIUM 3.7 MMOL/L (3.5-5.1); SODIUM 139 MMOL/L (135-145); TOTAL CARBON DIOXIDE 26.9 MMOL/L (24-32); TOTAL PROTEIN 6.2 G/DL (6.4-8.2); eGFR 60 ML/MIN
[2020-12-30] MEDS: heparin 25,000 UNIT/250ml bag 250 ML IV SCH (04:44)
[2020-12-30] MEDS: normal saline 1000ml 1,000 ML IV SCH (04:45)
--- NOTE | 2020-12-30 06:12 | NUR ---
Problems reprioritized. Patient report given, questions answered & plan of care reviewed with BORIS Deng.
--- NOTE | 2020-12-30 06:41 | NUR ---
Patient in room ORTHO 4022. I have received report from Bernadine ESCALANTE and had the opportunity to ask questions and assume patient care.
[2020-12-30] MEDS: memantine 5mg tablet PO SCH (08:47)
[2020-12-30] MEDS: HYDROchlorothiazide 12.5mg capsule PO SCH (08:47)
[2020-12-30] MEDS: lisinopril 20mg tablet PO SCH (08:47)
[2020-12-30] MEDS: diltiazem SR 60mg capsule (twice daily) PO SCH (08:47)
[2020-12-30] MEDS: gentamicin ophthalmic ointment 1 APPLIC TUBE EACHEYE SCH (08:48)
[2020-12-30] MEDS: pantoprazole 40mg Tablet.DR PO SCH (08:49)
[2020-12-30] MEDS: docusate sod 100mg capsule PO SCH (08:55)
[2020-12-30 10:00] VITALS: BP_SYST 164; BP_SYST 165; BP_DIAS 79; BP_DIAS 82
--- NOTE | 2020-12-30 12:50 | NUR ---
Patient had already had carbs from lunch when blood glucose was going to be taken. Will treat at level 2 at 1700.
--- NOTE | 2020-12-30 15:30 | NUR ---
Patient report called to RPA all questions answered at this time.
[2020-12-31] MEDS ORDERED: levoFLOXACIN-Levaquin 250mg/D5 50 ML IV SCH (08:00)
[2020-12-31] MEDS ORDERED: furosemide 40mg/4ml inj IV SCH (08:00)
== END 2020-12-30 15:29 | DRG 252 ==
LOC: ER 10:46 → ED HOLD 13:56 → ICU 2S 15:52 → ORTHO 4S 12-28 17:00
PROVIDERS: ADMIT Internal Medicine Critical Care Medicine; ATTEND Internal Medicine Critical Care Medicine
PROC: B3251ZZ Computerized Tomography (CT Scan) of Bilateral Common Carotid Arteries using Low Osmolar Contrast (ICD-10-PCS; 2020-12-24)
PROC: B32G1ZZ Computerized Tomography (CT Scan) of Bilateral Vertebral Arteries using Low Osmolar Contrast (ICD-10-PCS; 2020-12-24)
PROC: B3281ZZ Computerized Tomography (CT Scan) of Bilateral Internal Carotid Arteries using Low Osmolar Contrast (ICD-10-PCS; 2020-12-24)
PROC: 02HV33Z Insertion of Infusion Device into Superior Vena Cava, Percutaneous Approach (ICD-10-PCS; 2020-12-24)
PROC: 3E03317 Introduction of Other Thrombolytic into Peripheral Vein, Percutaneous Approach (ICD-10-PCS; 2020-12-24)
PROC: 03C50ZZ Extirpation of Matter from Right Axillary Artery, Open Approach (ICD-10-PCS; principal; 2020-12-24 14:50)
PROC: B32G1ZZ Computerized Tomography (CT Scan) of Bilateral Vertebral Arteries using Low Osmolar Contrast (ICD-10-PCS; 2020-12-29)
PROC: B3251ZZ Computerized Tomography (CT Scan) of Bilateral Common Carotid Arteries using Low Osmolar Contrast (ICD-10-PCS; 2020-12-29)
PROC: B3281ZZ Computerized Tomography (CT Scan) of Bilateral Internal Carotid Arteries using Low Osmolar Contrast (ICD-10-PCS; 2020-12-29)
DX: I74.2 Embolism and thrombosis of arteries of the upper extremities (principal); I63.9 Cerebral infarction, unspecified; D62 Acute posthemorrhagic anemia; I48.20 Chronic atrial fibrillation, unspecified; R47.01 Aphasia; D72.828 Other elevated white blood cell count; E11.22 Type 2 diabetes mellitus with diabetic chronic kidney disease; I99.8 Other disorder of circulatory system; I95.9 Hypotension, unspecified; M79.601 Pain in right arm; N18.30 Chronic kidney disease, stage 3 unspecified; I65.21 Occlusion and stenosis of right carotid artery; Z20.822 Contact with and (suspected) exposure to COVID-19; E83.42 Hypomagnesemia; E11.649 Type 2 diabetes mellitus with hypoglycemia without coma; E78.00 Pure hypercholesterolemia, unspecified; E78.5 Hyperlipidemia, unspecified; F03.90 Unspecified dementia, unspecified severity, without behavioral disturbance, psychotic disturbance, mood disturbance, and anxiety; I12.9 Hypertensive chronic kidney disease with stage 1 through stage 4 chronic kidney disease, or unspecified chronic kidney disease; I35.0 Nonrheumatic aortic (valve) stenosis; Z86.73 Personal history of transient ischemic attack (TIA), and cerebral infarction without residual deficits; Z79.899 Other long term (current) drug therapy; Z79.84 Long term (current) use of oral hypoglycemic drugs
CPT/HCPCS: 36415; 70450; 70496; 70498; 70551; 71045; 76937; 80053; 80061; 82948; 83036; 83605; 83735; 83880; 84134; 84145; 84439; 84443; 84484; 85025; 85610; 85730; 86885; 86900; 86901; 87040; 87081; 87088; 87635; 88304; 92508; 92616; 93005; 93306; 93931; 96374; 97110; 97163; 97530; 97535; 99291; 99292; A4618; A6258; A6449; A7000; C1757; C9113; G0378; J0131; J0690; J1100; J1644; J1815; J2250; J2270; J2370; J2405; J2997; J3010; J3475; J3480; J3490; J7030; J7040; J7120; Q9967